=== PATIENT | male | born 1965 ===

== ENCOUNTER 2022-10-02 11:58 | Day surgery (SDC) | payer OTHER ==
[~2022-10-02] VITALS: Ht 180.3 cm; Wt 88.5 kg
== END 2022-10-02 23:35 | disposition home or self-care (01) ==
LOC: CIR.AMB 11:58
PROVIDERS: ATTEND Orthopaedic Surgery Sports Medicine
DX: M75.121 Complete rotator cuff tear or rupture of right shoulder, not specified as traumatic (principal); M75.21 Bicipital tendinitis, right shoulder; M75.41 Impingement syndrome of right shoulder; S43.401A Unspecified sprain of right shoulder joint, initial encounter; M24.011 Loose body in right shoulder; Z20.822 Contact with and (suspected) exposure to COVID-19